=== PATIENT | male | born 1950 ===

== ENCOUNTER → 2018-10-28 14:28 | Outpatient (REF) | payer MEDICARE, OTHER, SELFPAY ==
[2018-10-28 14:43] LABS: Add Manual Diff / Slide Review NO; Basophils Absolute Auto 0 /uL (0-100); Basophils Percent Auto 0.7 % (0-2); Eosinophils Absolute Auto 300 /uL (0-450); Eosinophils Percent Auto 5.1 % (2-4); Hematocrit 44.8 % (41-53); Hemoglobin 14.7 g/dL (13.5-17.5); Lymphocytes Absolute Auto 1900 /uL (1100-4500); Lymphocytes Percent Auto 31.5 % (25-40); Mean Corpuscular HGB Conc 32.9 % (30-36); Mean Corpuscular Hemoglobin 30.3 PG (26-34); Monocytes Absolute Auto 500 /uL (0-900); Monocytes Percent Auto 8.1 % (3-14); Neutrophils Absolute Auto 3400 /uL (1500-7000); Neutrophils Percent Auto 54.6 % (50-75); Platelet Count 198 X10^3/uL (150-400); Red Blood Cell Count 4.87 X10^6/uL (4.5-5.9); Red Cell Distribution Width 13.6 % (11.6-14.8); White Blood Cell Count 6.2 X10^3/uL (4.5-11.0)
[2018-10-28 14:49] LABS: Alanine Aminotransferase 35 IU/L (21-72); Albumin 4.2 g/dL (3.5-5.0); Albumin Globulin Ratio 1.6 (1.0-2.8); Alkaline Phosphatase 60 U/L (38-126); Aspartate Aminotransferase 31 IU/L (17-59); Bilirubin Total 0.7 mg/dL (0.2-1.3); Blood Urea Nitrogen 24 mg/dL (9-20); Calcium 9.3 mg/dL (8.4-10.2); Carbon Dioxide 28 mmol/L (22-32); Chloride 100 mmol/L (98-107); Cholesterol 169 mg/dL (140-199); Estimated Glomerular Filt Rate > 60.0 mL/min (>60); Globulin 2.6 g/dL (1.7-4.1); Glucose 102 mg/dL (80-110); HDL Cholesterol 44 mg/dL (40-60); HEMOLYSIS < 15 (0-50); LDL Cholesterol Calculated 90 mg/dL (<100); Potassium 3.8 mmol/L (3.4-5.1); Sodium 139 mmol/L (137-145); Total Protein 6.8 g/dL (6.3-8.2); Triglycerides 173 mg/dL (35-150)
[2018-10-28 14:54] LABS: Hemoglobin A1C% w Est Avg Glu 5.5 % (4.0-6.0)
[2018-10-28 15:21] LABS: Cortisol AM (Before 10AM) 10.3 ug/dL (4.46-22.7); Prostate Specific Antigen 1.02 ng/mL (0.10-4.00)
== END ==
LOC: LAB 14:28
PROVIDERS: Visit Provider Family Medicine
DX: Z12.5 Encounter for screening for malignant neoplasm of prostate (principal); Z13.6 Encounter for screening for cardiovascular disorders; Z13.220 Encounter for screening for lipoid disorders; Z13.820 Encounter for screening for osteoporosis
CPT/HCPCS: 36415; 80053; 80061; 82533; 83036; 84153; 84403; 85025; G0103